=== PATIENT | male | born 1950 | race Caucasian/White ===

== ENCOUNTER 2021-10-07 07:06 | Inpatient (IN) | payer MEDICARE ==
[~2021-10-07] VITALS: Ht 182.9 cm; Wt 97.5 kg
[2021-10-07 07:08] VITALS: BP 172/91
[2021-10-07 07:42] LABS: ABSOLUTE BASOPHILS 0.1 thou/uL (0.0-0.2); ABSOLUTE EOSINOPHILS 0.1 thou/uL (0.0-0.7); ABSOLUTE LYMPHOCYTES 2.4 thou/uL (0.8-5.3); ABSOLUTE NEUTROPHILS 6.2 thou/uL (1.6-8.1); BASOPHILS 0.6 %; EOSINOPHILS 1.2 %; HEMATOCRIT 41.8 % (42.0-52.0); HEMOGLOBIN 14.2 gm/dL (14.0-18.0); LYMPHOCYTES 24.2 %; MCH 28.2 pg (26.0-34.0); MONOCYTES 10.4 %; MPV 8.5 fl. (7.2-11.1); NUCLEATED RBCS 0 /100WBC; PLATELET COUNT* 198 thou/uL (150-400); POLYS 63.6 %; RBC 5.03 mil/uL (4.50-6.00); WBC 9.8 thou/uL (4.0-11.0)
[2021-10-07 07:50] LABS: CALCIUM 9.1 mg/dL (8.5-10.1); CREATININE 1.4 mg/dL (0.6-1.3); POTASSIUM 4.2 mmol/L (3.5-5.1)
[2021-10-07 07:54] LABS: ALBUMIN 3.3 g/dL (3.4-5.0); TOTAL BILIRUBIN 0.6 mg/dL (<0.1-1.0); TOTAL PROTEIN 7.2 g/dL (6.4-8.2)
--- NOTE | 2021-10-07 09:05 | EKG ---
[place] [address] ELECTROCARDIOGRAM REPORT Name: MABEL HALL Room: [facility]#: [id number] Admission: 10/07/21 Attend Phys: Discharge: Date of : 52 Date of Service: 10/07/21 0750 Report #: [id number] THIS REPORT FOR: //name// 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[facility] : 1950 Requested By: Timothy Shelby Order Number: [id number] MD: Victoriano Saldivar Measurements Intervals [place] Rate: 91 P: 60 [place]: 135 QRS: -8 QRSD: 101 T: 19 QT: 419 QTc: 516 Interpretive Statements Sinus rhythm Atrial premature complex Borderline T abnormalities, anterior leads Prolonged QT interval No previous ECG available for comparison Electronically Signed On 10-07-2021 9:05:20 TILE ERECTOR by Victoriano Saldivar [email or web address] <ELECTRONICALLY SIGNED> By: Victoriano Saldivar MD, [facility] 10/07/21 0905 0750 0750 Victoriano Saldivar MD, [facility] /EPI
[2021-10-07 10:56] LABS: CHOLESTEROL 191 mg/dL (<200); HDL CHOLESTEROL 36 mg/dL (>40); LDL CHOLESTEROL 117 mg/dL (<100); TC:HDL 5.3 Ratio (Not establshd); TRIGLYCERIDE 191 mg/dL (<150); VLDL 38 mg/dL (<40)
[2021-10-07 10:57] LABS: SERUM ASSESSMENT Clear
[2021-10-07 11:01] LABS: URINE BILIRUBIN NEGATIVE (Negative); URINE BLOOD NEGATIVE (Negative); URINE CLARITY CLEAR; URINE COLOR YELLOW; URINE GLUCOSE-RANDOM 3+ (Negative); URINE KETONES TRACE (Negative); URINE LEUKOCYTES-REFLEX NEGATIVE (Negative); URINE NITRITE-REFLEX NEGATIVE (Negative); URINE PROTEIN NEGATIVE (Negative); URINE UROBILINOGEN 0.2 E.U./dl (0.2-1.0)
[2021-10-07 11:06] LABS: ACETEST (KETONE CONFIRMATORY) Small (Negative)
[2021-10-07 14:04] VITALS: BP 129/65
--- NOTE | 2021-10-07 16:54 | 2DMMODE ---
[place] [address] 2 D/M-MODE ECHOCARDIOGRAM Name: MABEL HALL Room: [facility]9 ADM IN [facility]#: [id number] Admission: 10/07/21 Attend Phys: Davey Shell Discharge: Date of : 52 Date of Service: 10/07/21 1653 Report #: [id number] THIS REPORT FOR: cc: FAM - No family physician/PCP FAM - No family physician/PCP Victoriano Saldivar MD [facility] ~ ADDENDUM APPROVED REPORT Study performed: 10/07/2021 15:43:11 EXAM: Comprehensive 2D, Doppler, and color-flow Echocardiogram Patient Location: In-Patient Room #: ER Status: routine BSA: 2.20 HR: 90 bpm BP: 153/80 mmHg Rhythm: NSR Other Information Study Quality: Good Indications AMS 2D Dimensions IVSd: 11.76 (7-11mm) LVOT Diam: 19.56 (18-24mm) LVDd: 44.12 mm PWd: 10.32 (7-11mm) Ascending Ao: 30.87 (22-36mm) LVDs: 24.88 (25-40mm) Aortic Root: 33.65 mm Volumes Left Atrial Volume (Systole) LA ESV Index: 18.80 mL/m2 Aortic Valve AoV Peak Brannon.: 1.27 m/s AO Peak Gr.: 6.46 mmHg LVOT Max P.91 mmHg AO Mean Gr.: 3.99 mmHg LVOT Mean P.22 mmHg LVOT Max V: 1.31 m/s AO V2 VTI: 19.53 cm LVOT Mean V: 0.82 m/s AGUSTIN (VTI): 3.36 cm2 LVOT V1 VTI: 21.80 [place] [address] 2 D/M-MODE ECHOCARDIOGRAM Name: MABEL HALL Room: [address] IN [facility]#: [id number] Admission: 10/07/21 Attend Phys: Davey Shlel Discharge: Date of : 52 Date of Service: 10/07/21 1653 Report #: [id number] Mitral Valve E/A Ratio: 0.65 MV Decel. Time: 312.86 ms MV E Max Brannon.: 0.47 m/s MV PHT: 90.73 ms MVA (PHT): 2.42 cm2 TDI E/Lateral E': 4.27 E/Medial E': 7.83 Medial E' Brannon.: 0.06 m/s Lateral E' Brannon.: 0.11 m/s Tricuspid Valve RAP Estimate: 5.00 mmHg TR Peak Gr.: 58.17 mmHg RVSP: 63.00 mmHg PA Pressure: 63.00 mmHg Left Ventricle The left ventricle is normal size. There is normal LV segmental wall motion. There is normal left ventricular wall thickness. Left ventricular systolic function is normal. The left ventricular ejection fraction is within the normal range. LVEF is 60-65%. Grade I - abnormal relaxation pattern. Right Ventricle Right ventricle is dilated. The right ventricular systolic function is normal. Atria The left atrium size is normal. Right atrium is dilated. Aortic Valve The aortic valve is normal in structure. No aortic regurgitation is present. There is no aortic valvular stenosis. Mitral Valve The mitral valve is normal in structure. Mild mitral regurgitation. No evidence of mitral valve stenosis. Tricuspid Valve The tricuspid valve is normal in structure. Mild tricuspid regurgitation. estimated pa pressure 50 mm Hg Pulmonic Valve The pulmonary valve is normal in structure. There is no pulmon[place] [address] 2 D/M-MODE ECHOCARDIOGRAM Name: MABEL HALL Room: [address] IN [facility]#: [id number] Admission: 10/07/21 Attend Phys: Davey Shell Discharge: Date of : 52 Date of Service: 10/07/21 1653 Report #: [id number] Great Vessels The aortic root is normal in size. IVC is not well visualized. Pericardium There is no pericardial effusion. <Conclusion> LVEF is 60-65%. Right ventricle is dilated. Right atrium is dilated. Mild tricuspid regurgitation. estimated pa pressure 50 mm Hg <ELECTRONICALLY SIGNED> By: Victoriano Saldivar MD, FACC 10/07/211652 52 52 Victoriano Saldivar MD, FACC /INF
[2021-10-07 18:08] VITALS: BP 120/54
[2021-10-08 00:29] VITALS: BP 133/74
[2021-10-08 01:45] VITALS: BP 133/74; BP 156/79
[2021-10-08 08:00] VITALS: BP 154/92
--- NOTE | 2021-10-08 12:33 | CON ---
[address] [address] CONSULTATION Name: MABEL HALL Room: [address] IN M.R.#: [id number] Admission: 10/07/21 Attend Phys: Elisabeth Sanchez Discharge: Date of : 52 Report #: [id number] THIS REPORT FOR: cc: FAM - No family physician/PCP FAM - No family physician/PCP Victoriano Saldivar MD [facility] ~ DATE OF CONSULTATION: 10/07/2021 CARDIOLOGY CONSULTATION HISTORY OF PRESENT ILLNESS: The patient is a 71-year-old white male who I was asked to see in the hospital today after he had a syncopal spell. The patient has no previous history of heart disease. He stays very active. He is currently on no medications. He does note about a year ago, he was at a golf [place] when he apparently fell and had brief loss of consciousness. He has done well since that time. However, he notes that yesterday afternoon, he took a shower, felt somewhat weak after the shower. He then went to bed last night. He awakened at 6:00 this morning, went to the bathroom. On his way to the bathroom, he apparently fell to the ground. His heard him hit the ground. He injured his right toe when it struck a cabinet. When his arrived, he was somewhat confused. He apparently urinated on himself. She noticed his pupils were dilated. She called the paramedics. He was brought here to [place] by ambulance. After paramedics got there, he was awake. He is being admitted for further evaluation and treatment. He has had occasional headaches, but denies any blurred vision. There is apparently no seizure activity. Denies any vomiting, diarrhea or bleeding. He has no history of chest pain, shortness of breath. PAST MEDICAL HISTORY: He had tonsillectomy, eye surgery. No history of hypertension, hyperlipidemia. He does have a history of glucose intolerance. He is on diabetic pills in the past, currently controlled his diabetes diet. He is to see Dr. Shin Juárez, who retired. ALLERGIES: HE HAS AN ALLERGY TO PENICILLIN. FAMILY HISTORY: Grandfather had stroke. SOCIAL HISTORY: He is , lives in [place]. 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 No smoking, alcohol abuse. REVIEW OF SYSTEMS: No history of stroke, asthma, liver disease, kidney disease, cancer, psychiatric illness, chronic skin condition. PHYSICAL EXAMINATION: GENERAL: Revealed an elderly male, lying in stretcher, [place] [address] CONSULTATION Name: MABEL HALL Room: [address] IN ..#: [id number] Admission: 10/07/21 Attend Phys: Elisabeth Sanchez Discharge: Date of : 52 Report #: [id number] VITAL SIGNS: He had a blood pressure of 150/80, pulse is 80, he is afebrile. HEENT: He was anicteric. Conjunctivae pink. Mucous membranes moist. NECK: Veins not distended. No carotid bruits. Neck is supple. CHEST: Clear to auscultation. HEART: Regular rate and rhythm without murmur. ABDOMEN: Soft. EXTREMITIES: Had no edema. Posterior tibial pulse 3+ bilaterally. SKIN: Cool and dry. NEUROLOGIC: Nonfocal. LYMPHATIC: No adenopathy. PSYCHIATRIC: Mood is appropriate. LABORATORY DATA: His ECG on admission showed a sinus rhythm with nonspecific ST segment changes. Workup in the Emergency Room, he had a portable chest x-ray that showed normal heart size, clear lung cline. He had a CT scan of the head without contrast that was unremarkable. His lab work, creatinine 1.4, glucose is 365. His high sensitivity troponin was 116. Hemoglobin 14.2. COVID antigen stat test is pending. IMPRESSION AND RECOMMENDATIONS: 1. Syncope. Suspect vasovagal. I would consider discharging the patient with a home monitor. 2. Hypertension. If it remains elevated, I would consider starting an DIAZ inhibitor. 3. Diabetes. Recommend treatment. 4. Chronic kidney disease. 5. Borderline troponin. No evidence of acute myocardial infarction. <ELECTRONICALLY SIGNED> By: Victoriano Saldivar MD, [facility] 10/08/21 1233 0837 0923Daroxie Saldivar MD, FACC /nt
--- NOTE | 2021-10-08 14:30 | EKG ---
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1884 : 1950 Requested By: Davey Shell Order Number: [id number] Reading MD: Victoriano Saldivar Measurements Intervals [place] Rate: 97 P: 66 [place]: 153 QRS: -16 QRSD: 97 T: 3 QT: 358 QTc: 455 Interpretive Statements Sinus rhythm Inferior infarct, old Compared to ECG 10/07/2021 07:50:34 Atrial premature complex(es) no longer present Prolonged QT interval no longer present Electronically Signed On 10-08-2021 14:30:05 EMERGENCY RESPONSE OFFICER by Victoriano Saldivar [email or web address] <ELECTRONICALLY SIGNED> By: Victoriano Saldivar MD, [facility] 10/08/21 1430 1412 141 Victoriano Saldivar MD, [facility] /EPI
[2021-10-08 16:42] VITALS: BP 138/78
[2021-10-08 17:07] LABS: ABSOLUTE EOSINOPHILS 0.1 thou/uL (0.0-0.7); ABSOLUTE LYMPHOCYTES 2.4 thou/uL (0.8-5.3); ABSOLUTE NEUTROPHILS 5.4 thou/uL (1.6-8.1); BASOPHILS 0.5 %; HEMATOCRIT 42.9 % (42.0-52.0); HEMOGLOBIN 14.3 gm/dL (14.0-18.0); LYMPHOCYTES 26.9 %; MCH 27.7 pg (26.0-34.0); MCHC 33.3 g/dL (28.0-37.0); MCV 83.3 fL (80.0-100.0); MONOCYTES 10.8 %; MPV 8.7 fl. (7.2-11.1); NUCLEATED RBCS 0 /100WBC; PLATELET COUNT* 203 thou/uL (150-400); POLYS 60.8 %; RBC 5.14 mil/uL (4.50-6.00); WBC 8.8 thou/uL (4.0-11.0)
[2021-10-08 17:21] LABS: ALBUMIN 3.3 g/dL (3.4-5.0); CALCIUM 8.9 mg/dL (8.5-10.1); CREATININE 1.3 mg/dL (0.6-1.3); TOTAL BILIRUBIN 0.5 mg/dL (<0.1-1.0); TOTAL PROTEIN 7.2 g/dL (6.4-8.2)
[2021-10-08 20:00] VITALS: BP 159/8
[2021-10-09 01:11] VITALS: BP 146/88
[2021-10-09 04:06] LABS: GLYCOHEMOGLOBIN (HGB A1C) 12.4 % (4.8-5.6)
[2021-10-09 06:10] VITALS: BP 142/82
[2021-10-09 08:00] VITALS: BP 145/87
[2021-10-09 08:27] LABS: ABSOLUTE EOSINOPHILS 0.1 thou/uL (0.0-0.7); ABSOLUTE LYMPHOCYTES 2.2 thou/uL (0.8-5.3); ABSOLUTE MONOCYTES 0.9 thou/uL (0.0-1.2); ABSOLUTE NEUTROPHILS 4.5 thou/uL (1.6-8.1); BASOPHILS 0.5 %; EOSINOPHILS 1.3 %; HEMATOCRIT 41.4 % (42.0-52.0); HEMOGLOBIN 13.8 gm/dL (14.0-18.0); MCH 27.6 pg (26.0-34.0); MCHC 33.2 g/dL (28.0-37.0); MCV 83.2 fL (80.0-100.0); MONOCYTES 11.8 %; MPV 8.8 fl. (7.2-11.1); NUCLEATED RBCS 0 /100WBC; PLATELET COUNT* 174 thou/uL (150-400); POLYS 58.4 %; RBC 4.98 mil/uL (4.50-6.00); RDW-CV 13.1 % (10.5-14.5); WBC 7.8 thou/uL (4.0-11.0)
[2021-10-09 09:08] LABS: CALCIUM 8.9 mg/dL (8.5-10.1); CREATININE 1.2 mg/dL (0.6-1.3); POTASSIUM 4.2 mmol/L (3.5-5.1); TOTAL BILIRUBIN 0.6 mg/dL (<0.1-1.0); TOTAL PROTEIN 6.9 g/dL (6.4-8.2)
[2021-10-09 11:05] LABS: ABSOLUTE BASOPHILS 0.1 thou/uL (0.0-0.2); ABSOLUTE EOSINOPHILS 0.1 thou/uL (0.0-0.7); ABSOLUTE MONOCYTES 0.7 thou/uL (0.0-1.2); ABSOLUTE NEUTROPHILS 6.1 thou/uL (1.6-8.1); BASOPHILS 0.5 %; EOSINOPHILS 0.7 %; HEMATOCRIT 41.6 % (42.0-52.0); HEMOGLOBIN 13.1 gm/dL (14.0-18.0); LYMPHOCYTES 49.7 %; MCHC 31.5 g/dL (28.0-37.0); MONOCYTES 5.3 %; MPV 9.1 fl. (7.2-11.1); NUCLEATED RBCS 0 /100WBC; POLYS 43.8 %; RBC 4.68 mil/uL (4.50-6.00); RDW-CV 13.5 % (10.5-14.5)
[2021-10-09 11:10] LABS: MCV 88.9 fL (80.0-100.0); PLATELET COUNT* 74 thou/uL (150-400)
[2021-10-09 11:19] LABS: APTT 52.4 Seconds (25.0-31.3); INR 1.3; PROTIME 13.1 Seconds (9.20-11.50)
[2021-10-09 12:03] LABS: BE -17.6 mmol/L (-2 to +3); PO2 VENOUS 61.2 mmHg (35.0-45.0)
[2021-10-09 12:28] LABS: CREATININE 1.2 mg/dL (0.6-1.3); POTASSIUM 4.2 mmol/L (3.5-5.1); TOTAL BILIRUBIN 0.8 mg/dL (<0.1-1.0)
[2021-10-09 12:29] LABS: CALCIUM 8.9 mg/dL (8.5-10.1); MAGNESIUM 2.1 mg/dL (1.8-2.4); TOTAL PROTEIN 6.8 g/dL (6.4-8.2)
[2021-10-09 13:07] LABS: ALBUMIN 1.9 g/dL (3.4-5.0); CALCIUM 7.5 mg/dL (8.5-10.1); CREATININE 2.1 mg/dL (0.6-1.3); POTASSIUM 3.6 mmol/L (3.5-5.1); TOTAL BILIRUBIN 0.8 mg/dL (<0.1-1.0); TOTAL PROTEIN 4.8 g/dL (6.4-8.2)
[2021-10-09 13:08] LABS: HEMATOCRIT 37.7 % (42.0-52.0); HEMOGLOBIN 11.7 gm/dL (14.0-18.0); MCH 27.7 pg (26.0-34.0); MCHC 31.2 g/dL (28.0-37.0); MCV 88.7 fL (80.0-100.0); MPV 8.9 fl. (7.2-11.1); NUCLEATED RBCS 0 /100WBC; PLATELET COUNT* 143 thou/uL (150-400); RBC 4.25 mil/uL (4.50-6.00); RDW-CV 13.6 % (10.5-14.5); WBC 25.6 thou/uL (4.0-11.0)
--- NOTE | 2021-10-09 13:24 | EKG ---
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1950 Requested By: Davey Shell Order Number: [id number] Екатерина MD: Victoriano Saldivar Measurements Intervals [place] Rate: 128 P: 5 IN: 91 QRS: -72 QRSD: 156 T: 19 QT: 373 QTc: 545 Interpretive Statements Sinus tachycardia Right bundle branch block Inferior infarct, old Compared to ECG 10/08/2021 14:12:43 Right bundle-branch block now present Sinus rhythm no longer present Myocardial infarct finding still present Electronically Signed On 10-09-2021 13:23:55 TRANSACTION PROCESSOR by Victoriano Saldivar [email or web address] <ELECTRONICALLY SIGNED> By: Victoriano Saldivar MD, FACC 10/09/21 1323 1126 1126 Victoriano Saldivar MD, FAC /EPI
[2021-10-09 13:55] LABS: ABSOLUTE BASOPHILS 0.3 thou/uL (0.0-0.2); ABSOLUTE EOSINOPHILS 0.5 thou/uL (0.0-0.7); ABSOLUTE LYMPHOCYTES 7.4 thou/uL (0.8-5.3); ABSOLUTE MONOCYTES 2.3 thou/uL (0.0-1.2); ABSOLUTE NEUTROPHILS 15.1 thou/uL (1.6-8.1); PLATELET ESTIMATE ADEQUATE
[2021-10-09 15:04] LABS: BE -22.8 mmol/L (-2 to +3); PO2 VENOUS 59.7 mmHg (35.0-45.0)
--- NOTE | 2021-10-09 16:29 | 2DMMODE ---
[place] [address] 2 D/M-MODE ECHOCARDIOGRAM Name: RAFAELDINO Room: [address] IN [facility]#: [id number] Admission: 10/07/21 Attend Phys: Davey Shell Discharge: Date of : 52 Date of Service: 10/09/21 1629 Report #: [id number] THIS REPORT FOR: cc: FAM - No family physician/PCP FAM - No family physician/PCP Victoriano Saldivar MD [facility] ~ APPROVED REPORT Study performed: 10/09/2021 14:21:02 EXAM: Limited 2D Echocardiogram Patient Location: In-Patient Room #: 001 Status: routine BSA: 2.19 HR: 121 bpm BP: 79/41 mmHg Rhythm: NSR Other Information Study Quality: Technically Limited Technically limited study due to inability to position patient, patient on ventilator. Indications Dyspnea Syncope Left Ventricle The left ventricle is normal size. There is normal left ventricular wall thickness. The left ventricular systolic function is normal. The left ventricular ejection fraction is within the normal range. Right Ventricle The right ventricle is normal size. Atria The left atrium size is normal. The right atrium size is normal. Aortic Valve The aortic valve is normal in structure. Mitral Valve The mitral valve is normal in structure. [address] [address] 2 D/M-MODE ECHOCARDIOGRAM Name: MABEL HALL A Room: 001[facility] IN M.R.#: [id number] Admission: 10/07/21 Attend Phys: Davey Shell Discharge: Date of : 52 Date of Service: 10/09/219 Report #: [id number] Tricuspid Valve Tricuspid valve is not well visualized. Pulmonic Valve Pulmonic valve is not well visualized. Great Vessels The aortic root is normal in size. IVC is not well visualized. Pericardium There is no pericardial effusion. <Conclusion> The left ventricular systolic function is normal. The left ventricular ejection fraction is within the normal range. The right ventricle is normal size. There is no pericardial effusion. <ELECTRONICALLY SIGNED> By: Victoriano Saldivar MD, FACC 10/09/219 28 28 Victoriano Saldivar MD, FACC /INF
[2021-10-10 07:09] LABS: GLYCOHEMOGLOBIN (HGB A1C) 12.5 % (4.8-5.6)
--- NOTE | 2021-10-10 14:44 | CON ---
[address] [address] CONSULTATION Name: MABEL HALL Room: [address] IN ..#: [id number] Admission: 10/07/21 Attend Phys: Elisabeth Sanchez Discharge: 10/09/21 Date of : 52 Report #: [id number] THIS REPORT FOR: cc: ANGIE - No family physician/PCP FAM - No family physician/PCP Kev Dykes MD ~ DATE OF CONSULTATION: 10/09/2021 REQUESTING PHYSICIAN: Dr. Shell. INDICATION FOR CONSULTATION: Acute hypoxemic respiratory failure/status post-cardiac arrest. HISTORY OF PRESENT ILLNESS: A 71-year-old gentleman, past medical history is as mentioned below. This includes a history of diabetes. He is not known to be a smoker. He does not have any other major past medical history. He is here with recurrent syncope. He eventually had a cardiac arrest and was coded for up to 40 minutes. He has had return of spontaneous circulation. He is waking up. Initially, he was profoundly hypotensive and on epinephrine as well as norepinephrine infusion, high dose. Blood pressure in fact is now on the higher side and we are tapering these down. He is currently ventilating and oxygenating adequately. He does remain tachypneic. He still is on high FiO2 and we are in the process of titrating down. The patient's pulmonary artery systolic is 63. This is suspicious of acute pulmonary emboli. We do not have a previous echo available. The patient has received 100 mg of TPA during the code. The patient does have unilateral swelling of left lower extremity. He is unable to provide a further history or review of systems at this time. PAST MEDICAL HISTORY: Diabetes. SOCIAL HISTORY: Lifetime nonsmoker. No known history of heavy alcohol use or illegal drug use. CURRENT MEDICATIONS: List in [employer] reviewed. FAMILY HISTORY: No pertinent family history. PHYSICAL EXAMINATION: GENERAL: He is waking up. He is moving all extremities. VITAL SIGNS: Currently has a pulse of 120 and a blood pressure of 155/90. We have just turned off his Levophed. He is saturating 100%. He is on 80% FiO2, tidal volume 500, AC 16, 5 of PEEP. HEENT: Head is normocephalic and atraumatic. He was vomiting at the time of my evaluation, he is reported to have had perkins when he was intubated in his mouth. NECK: Does not show raised JVP, asymmetry, [place] [address] CONSULTATION Name: MABEL HALL Room: [address]#: [id number] Admission: 10/07/21 Attend Phys: Elisabeth Sanchez Discharge: 10/09/21 Date of : 52 Report #: [id number] CHEST: Symmetrical expansion on inspection and palpation. On auscultation, breath sounds are bilaterally equal. I do not hear any added sounds. HEART: Regular, tachycardia noted. ABDOMEN: Soft and nontender. EXTREMITIES: Lower extremities, 1+ edema on the left side. No edema on the right. SKIN: Dry and intact. NEUROLOGIC: Limited at this time; however, no focal deficit identified. LABORATORY DATA: The patient's chest x-ray shows interval development of right sided infiltrates today. Chest x-ray from the 6th looks unremarkable. CT head looks unremarkable. Lab work in [employer] from this morning, there are repeat labs that were sent during the code and these are pending at this time. ASSESSMENT AND PLAN: 1. Cardiac arrest. There is significant elevation in his right heart pressures. He also has unilateral swelling of left lower extremity and therefore, I feel that it is reasonable to treat him as acute pulmonary embolus at this time. He has received TPA. Would follow his PTTs and once his PTT is beginning to drop, I intend to start IV heparin drip or Lovenox, more likely IV heparin. We will do stat venous Dopplers. We will request also a repeat abbreviated echo. If his BUN and creatinine remain stable and he is hemodynamically stable, then I will plan to do a CTA chest later today. If pulmonary emboli/DVT are confirmed that he will need, then I will plan to do a hypercoagulability profile as well; however, primary therapy at this time in addition to TPA already administered will be anticoagulation. 3. Acute hypoxemic respiratory failure. He is on Precedex as well as fentanyl. We will give him Versed pushes as well. For now, avoiding arterial sticks due to TPA administration. We will obtain a venous blood gas and see where we stand. 4. Pulmonary infiltrates. The patient has just vomited and earlier he is reported to have had perkins in his mouth. There is development of new infiltrates on the right side. I will treat him for aspiration. Plan to start broad-spectrum antibiotics after obtaining cultures. HE HAS LISTED ALLERGY FOR PENICILLIN, I will investigate this further and assess as to whether cephalosporins in combination with Flagyl could be ordered. If not, then I will plan to order Levaquin and Flagyl. 5. Diabetes, insulin sliding scale. 6. Vomiting. I did order one dose of Reglan. We will follow, likely give him more Reglan. 7. Gastrointestinal prophylaxis, Protonix. 8. Clostridium difficile prophylaxis. Plan to order Lactinex later. 9. Recurrent syncope, presumed to be related to pulmonary embolism at this time. We will continue to follow Neurology Service as well as Cardiology have [address] [address] CONSULTATION Name: MABEL HALL Room: [address]#: [id number] Admission: 10/07/21 Attend Phys: Elisabeth Sanchez Discharge: 10/09/21 Date of : 52 Report #: [id number] seen the patient. The patient is critically ill at this time. Total time spent providing critical care to this patient today exceeds 45 minutes. <ELECTRONICALLY SIGNED> By: Kev Dykes MD 10/10/21 1444 1014 1032Aermias Dykes MD /nt
--- NOTE | 2021-10-15 18:02 | EEG ---
[address] [address] EEG STUDY REPORT Name: RAFAELDINO Room: [address] IN M.R.#: [id number] Admission: 10/07/21 Attend Phys: Elisabeth Sanchez Discharge: 10/09/21 Date of : 52 Report #: [id number] THIS REPORT FOR: cc: FAM - No family physician/PCP FAM - No family physician/PCP Jonathan Umanzor MD ~ DATE OF SERVICE: 10/07/2021 This patient is being evaluated for syncope. EEG is being done to evaluate the possibility of a seizure. EEG was done by placing the electrode by standard 10-20 system of electrode placement. Both referential and sequential montages were used for recording. Background activity in this patient's EEG is about 10 Hz and 40 microvolt. The patient went to sleep that is associated with bilateral slowing and vertex sharp waves. Photic stimulation is unremarkable. Throughout the record, no active epileptiform activity was noticed. IMPRESSION: This patient's EEG is within normal limits. Thank you very much for this referral. <ELECTRONICALLY SIGNED> By: Jonathan Umanzor MD 10/15/21 1802 1245 1306Parpete Umanzor MD /nt
--- NOTE | 2021-10-15 18:02 | CON ---
[address] [address] CONSULTATION Name: MABEL HALL Room: [address] IN ..#: [id number] Admission: 10/07/21 Attend Phys: Elisabeth Sanchez Discharge: 10/09/21 Date of : 52 Report #: [id number] THIS REPORT FOR: cc: ANGIE - No family physician/PCP FAM - No family physician/PCP Jonathan Umanzor MD ~ DATE OF CONSULTATION: 10/07/2021 HISTORY OF PRESENT ILLNESS: A 71-year-old male patient who was evaluated by me for episodes of dizziness and to determine any neurological etiology for that. The patient said he had one episode a few years ago. That was attributed to shingles gone into his ear. Then, he had 2 episodes yesterday, he had an episode in the bathroom today, he was going to have a bowel movement and he had another episode. His pupils were dilated according to the when it happened, but when she reached there, he did not look postictal and he was able to talk to her. This patient hit his head and he also had some trouble with the foot, which has bandages on it now. REVIEW OF SYSTEMS: Indicate that he had similar episode a few years ago and no cause was found that time. He is not sure how much medical attention he sought that time. He is pretty reluctant to have too many testing done. He says he is otherwise healthy. He has a history of diabetes, but he does not take any medications for that. His blood pressure is running in fairly good range here. It was somewhat high when he came in. His 14-point review of system was carried out and was otherwise noncontributory. He is not complaining of any eye, ENT, cardiac, respiratory, GI, , constitutional, dermatological, hematological, psychiatric, throat, allergic symptom associated with present symptomatology. He does have some musculoskeletal symptoms in the left foot and he has some abrasions on the forehead. PAST MEDICAL HISTORY: Negative for stroke. FAMILY HISTORY: Negative for early age stroke. SOCIAL HISTORY: He drinks alcohol only occasionally. PHYSICAL EXAMINATION: NEUROLOGIC: The patient's examination indicate that the patient is alert, responsive, able to follow simple and complex command. His speech looks intact. Cranial nerve examination 2-12 looks unremarkable. He has a position sense in the right side and the left foot, he has bandages. His reflexes look symmetrical. He does not appear to have any cerebellar sign. I could not look at the fundus. He is a well-built individual. VITAL SIGNS: His blood pressure is 145/83, respiration is 20, pulse is 80, temperature is 97.8. [place] [address] CONSULTATION Name: MABEL HALL Room: [address] IN .#: [id number] Admission: 10/07/21 Attend Phys: Elisabeth Sanchez Discharge: 10/09/21 Date of : 52 Report #: [id number] LABORATORY DATA: White count is 9.8 and creatinine is somewhat high at 1.4 and blood sugar was high at 365. Cardiac examination is unremarkable. No respiratory difficulty, no thyroid mass, no meningeal sign. He had a CT scan of the head, which will appear unremarkable. IMPRESSION: Most likely, this patient had a vasovagal spell. Cardiology is addressing that question. It will be desirable to do neurological workup to make sure there is no other pathology, which is going on in this patient, but he adamantly refuses MRI. He said he cannot do it and he will not do it. I am reluctant to do a CT angio because his creatinine is somewhat high, although it can be done, but the doubt for CT angio is showing something which will foreign exchange clerk is slow. There is a low yield procedure at this stage. I did discuss that options with him. In fact, he wants very little testing. He is scheduled to have a carotid Doppler EEG and a Cardiology consult and we will see what it show. If Cardiology feels strongly that it can be neurological, then we can proceed with CT angio, otherwise let them complete the workup and then we will decide about further management. Thank you very much for this referral. <ELECTRONICALLY SIGNED> By: Jonathan Umanzor MD 10/15/21 1802 1226 1832Pbyran Umanzor MD /nt
== END 2021-10-09 15:46 | DRG 299 ==
LOC: M.ERS 07:06 → M.TBA-ER 08:39 → M.2W 08:39 → M.ICU 10-09 10:07
PROVIDERS: Family Medicine; Internal Medicine Cardiovascular Disease; Internal Medicine Critical Care Medicine; ADMIT Internal Medicine; ATTEND Internal Medicine
PROC: 02HV33Z Insertion of Infusion Device into Superior Vena Cava, Percutaneous Approach (ICD-10-PCS; principal; 2021-10-09)
PROC: 04HY32Z Insertion of Monitoring Device into Lower Artery, Percutaneous Approach (ICD-10-PCS; principal; 2021-10-09)
DX: I82.412 Acute embolism and thrombosis of left femoral vein (principal); I26.99 Other pulmonary embolism without acute cor pulmonale; J96.01 Acute respiratory failure with hypoxia; N17.9 Acute kidney failure, unspecified; I46.9 Cardiac arrest, cause unspecified; E11.22 Type 2 diabetes mellitus with diabetic chronic kidney disease; N18.9 Chronic kidney disease, unspecified; E78.5 Hyperlipidemia, unspecified; R77.8 Other specified abnormalities of plasma proteins; Z20.822 Contact with and (suspected) exposure to COVID-19; I12.9 Hypertensive chronic kidney disease with stage 1 through stage 4 chronic kidney disease, or unspecified chronic kidney disease; Z82.49 Family history of ischemic heart disease and other diseases of the circulatory system; Z88.0 Allergy status to penicillin; Z82.3 Family history of stroke; Z83.3 Family history of diabetes mellitus